=== PATIENT | male | born 1985 | race Caucasian/White ===

== ENCOUNTER → 2018-04-25 | Outpatient (CLI) | payer MEDICARE, MEDICAID ==
--- NOTE | 2018-04-25 17:14 | MRI ---
EXAM DESCRIPTION: Cervical Spine: MRI. CLINICAL HISTORY: RADICULOPATHY COMPARISON: Cervical TECHNIQUE: Multiplanar MRI, multiple sequences, non-contrast High-field. FINDINGS: Small uncinate spur on the right at C4-5 level with minimal narrowing of the right neuroforamen. Canal and left neuroforamen are patent. Posterior elements including the facets are unremarkable. Normal signal in the remaining discs with no bulging. Disc spaces preserved. Canal and neural foramina are patent. Facets are negative. Spinal alignment is neutral, reduced lordosis, minimally kyphotic at the cervicothoracic junction.. No cord compression or cord edema. Atlantoaxial joint negative.. Base of the cerebellar tonsils is at the level of the foramen magnum. Paravertebral soft tissues show slightly enlarged lymph nodes in the bilateral carotid spaces.. Vertebral bodies are not compressed at any level. Normal marrow signal in the remaining vertebral bodies and the posterior elements. IMPRESSION: 1. Minimal narrowing of the right C4-5 neural foramen by uncinate spur. No nerve impingement. No cord compression. Canal and left neuroforamen are patent. Normal disc. 2. Remaining discs are unremarkable. Normal signal in the cord with no compression. No canal or foraminal stenosis at other levels. 3. Question of enlarged lymph nodes in the bilateral carotid spaces at the C3-C4 level posterior to the submandibular glands. Consider bilateral ultrasound evaluation. Electronically signed by: Linden Hawkins MD 04/25/2018 5:12 PM CDT
== END ==
LOC: MRI 13:00
PROVIDERS: ATTEND Surgery
DX: M54.12 Radiculopathy, cervical region (principal)

== ENCOUNTER → 2018-09-20 | Outpatient (CLI) | payer MEDICARE, MEDICAID ==
--- NOTE | 2018-09-20 17:45 | RAD ---
EXAM DESCRIPTION: Knee,Right 2 or More Views CLINICAL HISTORY: 33 years, Male, PAIN IN RIGHT KNEE COMPARISON: None TECHNIQUE: Three standing views of the right knee IMPRESSION: Lateral tilting and slight lateral subluxation of the patella. No fracture or bone lesion. No effusion. No joint space narrowing. Electronically signed by: Emanuel Delgado MD 09/20/2018 5:[address] [facility]
--- NOTE | 2018-09-20 17:46 | RAD ---
EXAM DESCRIPTION: Knee,Left 2 or More Views CLINICAL HISTORY: 33 years, Male, PAIN IN LEFT KNEE COMPARISON: None TECHNIQUE: Three standing views of the left knee IMPRESSION: Slight lateral tilting and lateral subluxation of the patella similar to the other side. No joint space narrowing. No fracture or bone lesion. No effusion. Electronically signed by: Emanuel Delgado MD 09/20/2018 5:43 PM [facility]
== END ==
LOC: RAD 09:10
PROVIDERS: ATTEND Nurse Practitioner Family
DX: S83.011A Lateral subluxation of right patella, initial encounter (principal); S83.012A Lateral subluxation of left patella, initial encounter

== ENCOUNTER 2019-10-05 05:28 | Day surgery (SDC) | payer MEDICARE, MEDICAID ==
--- NOTE | 2019-10-02 13:34 | RAD ---
Study: Frontal and Lateral Radiographs of the Chest. Indication: PRE OP Comparison: None. Impression: Mild cardiomegaly with mild interstitial edema. No consolidation, pleural effusion or pneumothorax. Right costophrenic angle not included in the [id number] on the frontal radiograph. No acute osseous abnormality. Electronically signed by: Avery Field MD 10/02/2019 1:32 PM CDT
[2019-10-05] MEDS ORDERED: LACTATED RINGERS 1,000 ML ONE (07:28)
[2019-10-05] MEDS ORDERED: NICOTINE PATCH 14 MG TD ONE ×2 (08:32→08:36)
[2019-10-05] MEDS ORDERED: DEXAMETHASONE INJ 10 MG/ML VIAL IV ONE (10:00)
[2019-10-05] MEDS ORDERED: ONDANSETRON INJ 4 MG/2 ML VIAL IV ONE (10:00)
[2019-10-05] MEDS ORDERED: raNITIdine HCL INJ 25 MG/ML VIAL IV ONE (10:00)
[2019-10-05] MEDS ORDERED: PROPOFOL 200 MG/20 ML VIAL IV ONE (10:00)
[2019-10-05] MEDS ORDERED: KETOROLAC TROMETHAMINE INJ 30 MG/ML VIAL IV ONE (10:00)
[2019-10-05] MEDS ORDERED: NEOSTIGMINE METHYLSULFATE 1 MG/ML ML IV ONE (10:00)
[2019-10-05] MEDS ORDERED: GLYCOPYRROLATE 0.2 MG/ML VIAL IV ONE (10:00)
[2019-10-05] MEDS ORDERED: BUPIVACAINE 0.5% W/EPI 30 ML VIAL INJ ONE ×2 (10:54→11:41)
[2019-10-05] MEDS ORDERED: MIDAZOLAM INJ 2 MG/2 ML VIAL ONE (11:32)
[2019-10-05] MEDS ORDERED: ROCURONIUM BROMIDE 10 MG/ML VIAL ONE (11:33)
[2019-10-05] MEDS ORDERED: fentaNYL CITRATE INJ 50 MCG/ML AMP ONE (11:33)
[2019-10-05] MEDS ORDERED: PROMETHAZINE HCL INJ 25 MG/ML VIAL ONE (12:47)
[2019-10-05] MEDS: HYDROmorphone HCL INJ 2 MG/ML VIAL ONE ×2 (12:52→13:17)
[2019-10-05] MEDS ORDERED: MIDAZOLAM INJ 5 MG/5 ML VIAL ONE (13:04)
--- NOTE | 2019-10-05 13:39 | OP ---
DATE OF PROCEDURE: 10/05/19 PREOPERATIVE DIAGNOSIS: 1. Acute cholecystitis. POSTOPERATIVE DIAGNOSIS: 1. Acute cholecystitis. PROCEDURE: 1. Laparoscopic cholecystectomy with intraoperative cholangiogram. SURGEON: Cooper Whitman MD. ANESTHESIA: General and local. FINDINGS: There were anterior adhesions consistent with chronic inflammation. Cholangiogram revealed normal anatomy throughout without filling defect. COMPLICATIONS: None. ESTIMATED BLOOD LOSS: Minimal. SPECIMEN: Gallbladder. CONDITION: Stable. PLAN: Discharge. INDICATION: As stated. PROCEDURE: General anesthesia was induced. The patient was prepped and draped in sterile fashion. Marcaine 0.5% with epinephrine was used at all incision sites. While maintaining upward traction, a paul was made near the base of the umbilicus. Veress needle was introduced. There was free flow of fluid into the peritoneal cavity which was insufflated to an appropriate level with CO2 gas. The 5 mm trocar was placed followed by the camera. There was no evidence of bleeding or bowel injury. The patient was positioned and subxiphoid and lateral ports were placed under direct visualization without difficulty. The gallbladder fundus was identified. Anterior adhesions were taken down. It was grasped. The infundibulum was grasped. The infundibular structures were dissected free. The artery was then triply ligated. A clip was placed on the proximal duct and ductotomy performed. The cholangiocatheter was introduced. The cholangiogram revealed the above normal findings. The catheter was removed. Three clips were placed on the distal duct. The duct was ligated and a few more posterior clips were placed on either small duct of Luschka or small vessels. The gallbladder was then dissected off the fossa in toto and removed. The fossa was examined. It remained hemostatic. The clips were intact. There was no bleeding or bile leak. The area was irrigated and aspirated. All aspirate was clear. At that point, the subxiphoid fascia was then closed. The remaining trocars were removed. There was no bleeding from the trocar sites. The wounds were then closed with Monocryl. Dressings were applied. The patient was awakened and taken to Recovery in stable condition to be discharged. #[id number] cc: TAYLOR Stringer
[2019-10-05 14:14] VITALS: BP 143/83; TEMP 97.6; O2SAT 97
--- NOTE | 2019-10-05 16:09 | RAD ---
FL LESS THAN 1 HOUR HISTORY: 34 years Male IOC COMPARISON: None. 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 See procedure notes for further details. Fluoroscopy time: 5.8 seconds. Fluoroscopic images: 2. Electronically signed by: Denis Gonzalez MD 10/05/2019 4:07 PM CDT
== END 2019-10-05 14:10 | disposition home or self-care (01) ==
LOC: AMB 05:28
PROVIDERS: ATTEND Surgery
DX: K80.10 Calculus of gallbladder with chronic cholecystitis without obstruction (principal); F17.200 Nicotine dependence, unspecified, uncomplicated
CPT/HCPCS: 00790; 36415; 47563; 71046; 76000; 80048; 85014; 85018; 88304; J1100; J1170; J1885; J2250; J2405; J2550; J2710; J2780; J3010; J3490; J7120

== ENCOUNTER 2020-04-26 20:31 | Emergency (ER) | payer MEDICARE, MEDICAID ==
[2020-04-26] MEDS ORDERED: CARBAMIDE PEROXIDE OTIC 15 ML BTTL ONE (20:47)
[2020-04-26] MEDS ORDERED: CARBAMIDE PEROXIDE OTIC 15 ML BTTL RIGHT_EAR ONE (20:47)
[2020-04-26 20:49] VITALS: TEMP 97; O2SAT 97
--- NOTE | 2020-04-26 21:03 | ED.PDOC ---
History of Present Illness - General Chief Complaint: ENT Problem Time Seen by Provider: 04/26/20 20:47 Additional Information: Patient is a 34-year-old male who presents the ED with chief complaint of fullness in his right ear. Patient indicates he regularly uses Q-tips when he gets out the shower and after using a Q-tip today he noted that he had diminished hearing in his right ear with a sense of "water" behind his ear. Patient denies earache, his symptoms are limited to decreased hearing and a sense of fullness in the ear. Patient denies nausea, vomiting, fever, chills, chest pain, shortness of breath, coug, sore throat. He has no other complaints today. - History of Present Illness Allergies/Adverse Reactions: Allergies NO KNOWN ALLERGY Allergy (Verified 10/02/19 11:55) Home Medications: Ambulatory Orders Metoprolol Succinate [Toprol XL] 50 mg PO DAILY 10/02/19 Omeprazole Magnesium [Prilosec Otc] 20 mg PO DAILY #30 tab 03/20/20 Carbamide Peroxide Otic [Debrox Otic] 1 ml OTIC TID #1 bttl 04/26/20 Review of Systems - Review of Systems Constitutional: States: no symptoms reported. Denies: chills, fever EENTM: States: see HPI Respiratory: States: no symptoms reported. Denies: cough, short of breath Cardiology: States: no symptoms reported. Denies: chest pain, palpitations Gastrointestinal/Abdominal: States: no symptoms reported. Denies: abdominal pain, nausea, vomiting Musculoskeletal: States: no symptoms reported Skin: States: no symptoms reported. Denies: rash All other Systems: Reviewed and Negative Past Medical History (General) - Patient Medical History Hx Congestive Heart Failure: No Hx Diabetes: No - borderline Hx Gastroesophageal Reflux: Yes Hx MRSA: No - Vaccination History Hx Tetanus, Diphtheria Vaccination: No Hx Influenza Vaccination: No - Social History Hx Tobacco Use: Yes Hx Alcohol Use: No Hx Substance Use: No Hx Substance Use Treatment: No Hx Depression: No Family Medical History - Family History Mother Family History: Unknown Physical Exam - Physical Exam General Appearance: Alert, Comfortable, No apparent distress, Well Developed, Well Nourished Ear Exam: right ear: other - Patient with cerumen impaction in the posterior aspect of canal against the tympanic membrane. TM is not visible. Patient has no discomfort with speculum insertion into the ear. There is no discharge or bleeding., left ear: canal normal Throat Exam: pharynx normal Cardiovascular/Respiratory: regular rate, rhythm, no M/R/G, normal breath sounds, no respiratory distress Neurologic: normal mood/affect Skin Exam: normal color, warm/dry Progress - Progress Progress: 04/26/20 22:26 Attempted to soften the impaction with Debrox and flush with warm water but was largely unsuccessful. I discussed with patient that I will discharge him with Debrox to continue to soften the hard impaction and I will give patient referral to ENT for him to follow-up with on Tuesday or Tuesday for definitive management of his cerumen impaction. I have very low clinical concern for TM rupture and will not prescribe any antibiotics. Patient voices understanding and willing to comply with discharge plan and instructions. Procedures - Foreign Body Removal Foreign Body Removal: other - Several drops of Debrox instilled in the right canal and allowed to soak for several minutes. Using warm tap water with a 20 mL syringe and the tip of an 18-gauge Angiocath, the right ear was gently irrigated. A small amount of earwax was flushed out but the bulk of the impaction remains in the po Departure - Departure Clinical Impression: Impacted cerumen of right ear Time of Disposition: 22:27 Disposition: Discharge to Home or Self Care Departure Forms: ED Discharge - Pt. Copy, Patient Portal Self Enrollment Instructions: DI for Ear Pain-Adult, Ear Wax Impaction Diet: full liquid diet Referrals: EDMUND ACEVEDO I [Consulting Staff] - 1-2 Days Prescriptions: Carbamide Peroxide Otic [Debrox Otic] 1 ml OTIC TID #1 bttl Home Medications: Ambulatory Orders Metoprolol Succinate [Toprol XL] 50 mg PO DAILY 10/02/19 Omeprazole Magnesium [Prilosec Otc] 20 mg PO DAILY #30 tab 03/20/20 Carbamide Peroxide Otic [Debrox Otic] 1 ml OTIC TID #1 bttl 04/26/20
[2020-04-26 22:27] VITALS: BP 154/90
== END 2020-04-26 22:34 | disposition home or self-care (01) ==
LOC: ER 20:31
DX: H61.21 Impacted cerumen, right ear (principal); K21.9 Gastro-esophageal reflux disease without esophagitis; Z87.891 Personal history of nicotine dependence; Z79.899 Other long term (current) drug therapy